=== PATIENT | male | born 1985 | race Hispanic/Latino ===

== ENCOUNTER 2016-11-30 00:47 | Emergency (ER) | payer OTHER ==
[2016-11-30 00:51] VITALS: BP 151/100
--- NOTE | 2016-11-30 03:28 | Emergency Department Report ---
Upper Extremity - HPI Chief Complaint: Extremity Injury, Upper Stated Complaint: L ARM PAIN WORK INJURY Time Seen by Provider: 11/30/16 03:05 Upper Extremity: Left Wrist Occurred When: Today Mechanism: Fall Severity: moderate Symptoms: Yes Pain with Movement, Yes Deformity, Yes Limited Range of Movement, Yes Swelling, No Numbness, No Weakness, No Bruising/Ecchymosis, No Laceration or Abrasion Other History: 30-year-old male past medical history obesity presents with complaint of injury to left wrist. Patient states that he fell onto an outstretched hand while at work. Patient complaining of pain in his left wrist. States that it radiates up to his left elbow. No lacerations sustained. Visible mild swelling to distal left wrist. ED Review of Systems ROS: Stated complaint: L ARM PAIN WORK INJURY Other details as noted in HPI Constitutional: denies: chills, fever Eyes: denies: eye pain, eye discharge, vision change ENT: denies: ear pain, throat pain Respiratory: denies: cough, shortness of breath, wheezing Cardiovascular: denies: chest pain, palpitations Endocrine: no symptoms reported Gastrointestinal: denies: abdominal pain, nausea, diarrhea Genitourinary: denies: urgency, dysuria Musculoskeletal: denies: back pain, joint swelling, arthralgia Skin: denies: rash, lesions Neurological: denies: headache, weakness, paresthesias Psychiatric: denies: anxiety, depression Hematological/Lymphatic: denies: easy bleeding, easy bruising ED Past Medical Hx - Past Medical History Previous Medical History?: No - Surgical History Past Surgical History?: No - Social History Smoking Status: Current Some Day Smoker Substance Use Type: None - Medications Home Medications: Home Medications Medication Instructions Recorded Confirmed Last Taken Type Acetaminophen/Codeine [Tylenol 1 tab PO Q6H PRN #15 tab 11/30/16 Unknown Rx /Codeine # 3 tab] Naproxen [Naprosyn TAB] 500 mg PO BID PRN #25 tablet 11/30/16 Unknown Rx Upper Extremity Exam - Exam General: Vital signs noted. No distress. Alert and acting appropriately. Head and Torso: No HEENT Abnormality, No Neck Tenderness, No Chest/Lungs Abnormality, No Abdominal Tenderness, No Back Tenderness Shoulder Exam: Yes Normal Range of Motion in Shoulder, No Shoulder Tenderness, No Clavicle Tenderness, No Shoulder Deformity, No AC Joint Tenderness Arm Exam: No Arm/Humerus Tenderness, No Arm Deformity Elbow: No Elbow Tenderness, No Normal Range of Motion in Elbow, No Elbow Deformity Forearm: No Forearm Tenderness, No Forearm Deformity, No Pain with Pronation, No Pain with Supination Wrist: Yes Wrist Tenderness (distal left wrist tenderness), Yes Normal ROM in Wrist (difficulty with flexion and extension), No Wrist Deformity, No Snuffbox Tenderness, No Pain with Axial Thumb Compression Hand: Yes Normal ROM in Digit(s), No Hand Tenderness, No Hand Deformity, No Digit Tenderness, No Digit(s) Deformity, No Tendon Dysfunction CMS Exam: Yes Normal Distal Pulses (distal radial and ulnar pulses intact to palpation), No Broken Skin, No Normal Capillary Refill (capillary refill less than one second in all fingers), No Normal Distal Sensation (distal sensation to light touch intact all fingers) Front/Back of Body, Lg (Color): 1 - Pain on palpation here Hand L/R Front: 1 - Pain on palpation here ED Course Vital Signs 11/30/16 11/30/16 00:50 01:03 Temperature 98.1 F 98.1 F Pulse Rate 92 H 92 H Respiratory 20 20 Rate Blood Pressure 151/100 Blood Pressure 151/100 [Right] O2 Sat by Pulse 97 97 Oximetry ED Medical Decision Making - Medical Decision Making A/P: Left wrist sprain, possible occult left wrist fracture 1-x-ray left wrist negative. However given patient's distal wrist swelling and tenderness to palpation patient will be placed in a wrist splint including thumb spica to immobilize distal wrist 2-Motrin when necessary, Tylenol No. 3 when necessary 3-RICE therapy 4- follow-up with orthopedics. I advised patient it is extremely important to follow up with orthopedics within the next week for possible repeat imaging of the left wrist to investigate for any occult fractures and to be reevaluated by an copy center specialist. Patient states he understood the importance of following up. No neurovascular compromise to distal left hand/wrist on clinical exam. Critical care attestation.: If time is entered above; I have spent that time in minutes in the direct care of this critically ill patient, excluding procedure time. ED Disposition Clinical Impression: Wrist pain, left Disposition: - TO HOME OR SELFCARE Is pt being admited?: No Does the pt Need Aspirin: No Condition: Stable Instructions: SUSPECTED FRACTURE (ED), Wrist Sprain (ED), Splint Care (ED) Prescriptions: Acetaminophen/Codeine [Tylenol /Codeine # 3 tab] 1 tab PO Q6H PRN #15 tab PRN Reason: Pain Naproxen [Naprosyn TAB] 500 mg PO BID PRN #25 tablet PRN Reason: Pain Referrals: HARINDER ARCE MD [Staff Physician] - 3-[address] [facility] [Provider Group] - 3-5 Days Forms: Work/School Release Form(ED) Time of Disposition: 04:14
[2016-11-30] MEDS ORDERED: MOTRIN PO ONE (03:29)
--- NOTE | 2016-11-30 03:36 | XRay Report ---
FINAL REPORT PROCEDURE: XR WRIST 2V LT TECHNIQUE: LEFT wrist radiographs, including AP, lateral, and oblique views. CPT 51939 HISTORY: LEFT WRIST PAIN COMPARISON: No prior studies are available for comparison. FINDINGS: Fracture (s) and/or Dislocation(s): None . Alignment: Normal . Joint space(s): Normal . Soft tissues: Normal . Bone mineralization: Normal . Foreign bodies: None . IMPRESSION: Normal Examination.
== END 2016-11-30 04:39 | disposition home or self-care (01) ==
LOC: ED 00:47
DX: M25.532 Pain in left wrist (principal); F17.200 Nicotine dependence, unspecified, uncomplicated; W19.XXXA Unspecified fall, initial encounter; Y93.89 Activity, other specified; Y92.89 Other specified places as the place of occurrence of the external cause; Y99.8 Other external cause status